=== PATIENT | male | born 1945 | race Caucasian/White ===

== ENCOUNTER 2021-06-13 05:53 | Day surgery (SDC) | payer MEDICARE, OTHER ==
[2021-06-13] MEDS ORDERED: Lactated Ringers 1,000 ML IV SCH (07:00)
[2021-06-13] MEDS ORDERED: DIPRIVAN 200 MG/20 ML IV ONE ×2 (07:25→07:52)
[2021-06-13] MEDS ORDERED: Xylocaine-Mpf 2% 5 Ml Vial ONE (07:25)
[2021-06-13] MEDS ORDERED: Versed 2 MG/2 ML Injection ONE (07:25)
--- NOTE | 2021-06-13 08:37 | OP ---
SURGERY DATE/TIME: 06/13/2021 0731 PREOPERATIVE DIAGNOSES: 1) Abdominal pain. 2) Change in bowel habits. 3) Epigastric pain. POSTOPERATIVE DIAGNOSES: 1) Moderate to severe gastritis. 2) Mild sigmoid diverticulosis. 3) Rectal polyp. PROCEDURES: 1) Esophagogastroduodenoscopy with cold forceps biopsy of the antrum and fundus of the stomach. 2) Colonoscopy with hot snare polypectomy of the rectal polyp. SURGEON: Dr. Gallardo. ANESTHESIA: Medications were given by the anesthesia department. HISTORY: The patient is a 75-year-old white male patient who reports he has been having change in his bowel habits. He reports at times it is pencil thin. He reports his last colonoscopy was over ten years ago. The patient was felt the need to have endoscopic evaluation. He was appraised of the risks of the procedure including the risk of perforation, phlebitis, untoward reaction to medication, bleeding and missed lesions. The patient verbalized his understanding and desired to have the procedure performed. DESCRIPTION OF PROCEDURE: The patient was given the medications by the anesthesia department. He had continuous pulse oximetry, ECG monitoring and intermittent blood pressure monitoring and tidal CO2 monitoring during the examination. He was placed in the left lateral decubitus position. A bite block was placed and the flexible Olympus gastroscope was used to intubate the oropharynx. A view of the larynx was obtained and was normal. The scope was easily introduced in the esophagus which appeared to be normal throughout its length. The stomach was entered where gastric rugal folds were seen and they distended nicely with insufflation of air. The scope was passed along the greater curvature of the stomach to the antrum which appeared to be marked to severely erythematous. Biopsies were obtained from the antrum. The pylorus encountered and intubated. The duodenum inspected and found to be essentially normal. The scope is withdrawn towards the stomach. Again, a retroflex view was obtained of the lesser curvature, fundus and cardia regions of the stomach and again was noted to be fairly significant inflammation and edema. Biopsies were obtained in this area, too, to rule out the presence of any dysplasia. The scope is then removed from the patient who tolerated this portion of the procedure well. Next, a digital rectal examination was performed and revealed normal anal sphincter tone, no masses and normal prostate. The flexible Olympus pediatric colonoscope was used to intubate the rectum. A view of the colon was developed sequentially to the cecum. Upon insertion and withdrawal was noted mild sigmoid diverticulosis and a rectal polyp measuring approximately 1.5 cm in size this was removed and retrieved for evaluation by pathology by hot polypectomy snare. The scope was removed from the patient who tolerated the procedure well and was sent back to OP recovery in good condition. The prep was noted to be fair.
[2021-06-13 09:14] VITALS: BP 124/68
[2021-06-13 09:31] VITALS: PULSE 57; O2SAT 95
== END 2021-06-13 09:40 | disposition home or self-care (01) ==
LOC: SDC 05:53
PROVIDERS: ATTEND Family Medicine
DX: K29.70 Gastritis, unspecified, without bleeding (principal); K57.30 Diverticulosis of large intestine without perforation or abscess without bleeding; R10.13 Epigastric pain; R10.9 Unspecified abdominal pain; R19.4 Change in bowel habit; K62.1 Rectal polyp; D13.39 Benign neoplasm of other parts of small intestine; D17.5 Benign lipomatous neoplasm of intra-abdominal organs
CPT/HCPCS: 88305; 88312; 88341; 88342; 99100; J2250; J2704

== ENCOUNTER 2022-05-19 00:14 | Emergency (ER) | payer MEDICARE, OTHER ==
[2022-05-19] MEDS ORDERED: DUONEB 0.5-3 MG/3 ml Neb IH ONE ×2 (00:22→00:23)
[2022-05-19] MEDS ORDERED: solu-MEDROL 125 MG, Sterile H2O 10 ml 2 ML IV ONE ×2 (00:22)
[2022-05-19 00:27] LABS: Absolute Neutrophil Ct (ANC) 3.25 x10^3/uL (1.4-6.9); BASOPHIL % 1.4 % (0.0-0.4); Basophil (Absolute #) 0.11 x10^3/uL (0-0.4); Eosinophil % 13.5 % (0.00-5.0); IMMATURE GRAN # 0.02 x10^3u/L (0.00-0.03); IMMATURE GRAN % 0.2 % (0.00-0.4); Lymphocyte (Absolute #) 2.87 x10^3/uL (1.0-4.6); Lymphocytes % 35.3 % (24.0-44.0); Mean Cell Volume 93.7 fL (78-100); Mean Corpuscular Hemoglobin 32.7 pg (26-32); Mean Corpuscular Hgb Concent. 34.9 g/dL (32-36); Mean Platelet Volume 9.9 fL (7.5-11.0); Monocyte (Absolute #) 0.78 x10^3/uL (0.0-1.3); Monocytes % 9.6 % (0.0-12.0); Platelet Count 249 x10^3/uL (150-450); Red Blood Count 4.59 x10^6/uL (4.1-5.6); Red Cell Distribution Width 13.4 % (11.5-14.0); White Blood Count 8.1 x10^3/uL (4.0-10.5)
--- NOTE | 2022-05-19 00:28 | ERPHSYRPT ---
- History of Present Illness Time Seen by Provider: 05/19/22 00:23 Source: patient, family Exam Limitations: no limitations Physician History: hx independently confirmed by interview with . 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 No hx ht condition that he knows of and no CP tonight. onset just today. chest with wheezes bilaterally. minimal ext edema. abd nontender without mass or peritoneal signs. Timing/Duration: today Activities at Onset: none Severity of Dyspnea-Max: moderate Severity of Dyspnea-Current: moderate Possible Cause: occasional episodes Modifying Factors: Improves With: coughing Associated Symptoms: intermittent, cough, wheezing Allergies/Adverse Reactions: shrimp Adverse Reaction (Verified 05/19/22 00:19) Home Medications: Atorvastatin Calcium [Lipitor] 20 mg PO DAILY 06/23/12 [History] Levothyroxine Sodium 175 Mcg [Synthroid 175 MCG] 175 mcg PO DAILY 06/23/12 [History] Lisinopril 10 mg [Zestril 10 MG] 10 mg PO DAILY 07/06/15 [History] Magnesium 250 mg PO UD 07/06/15 [History] Metoprolol Succinate 50 mg [Toprol Xl 50 MG] 50 mg PO DAILY 07/06/15 [History] Oxycodone HCl 10 mg PO Q6H PRN PRN 07/06/15 [History] Allopurinol 100 mg [Zyloprim 100 mg] 100 mg PO DAILY 08/25/15 [History] Omeprazole 40 mg PO HS 06/12/21 [History] Tamsulosin HCl 0.4 mg PO DAILY 06/12/21 [History] Hx Influenza Vaccination/Date Given: Yes Hx Pneumococcal Vaccination/Date Given: Yes - Review of Systems Constitutional: No Fever, No Chills Eyes: No Symptoms Ears, Nose, & Throat: No Symptoms Respiratory: Cough, Dyspnea Cardiac: No Chest Pain, No Edema, No Syncope Abdominal/Gastrointestinal: No Abdominal Pain, No Nausea, No Vomiting, No Diarrhea Genitourinary Symptoms: No Dysuria Musculoskeletal: No Back Pain, No Neck Pain Skin: No Rash Neurological: No Dizziness, No Focal Weakness, No Sensory Changes Psychological: No Symptoms Endocrine: No Symptoms Hematologic/Lymphatic: No Symptoms Immunological/Allergic: No Symptoms All Other Systems: Reviewed and Negative - Past Medical History Pertinent Past Medical History: Yes Neurological History: No Pertinent History ENT History: No Pertinent History Cardiac History: Aneurysm, High Cholesterol, Hypertension Respiratory History: No Pertinent History Endocrine Medical History: Hypothyroidism Musculoskeletal History: Arthritis, Fractures GI Medical History: No Pertinent History History: Other Psycho-Social History: No Pertinent History Male Reproductive Disorders: No Pertinent History Other Medical History: 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 Right hip replaced - Social History Smoking Status: Current every day smoker How long have you smoked: 50+ years Exposure to second hand smoke: No Drug Use: narcotics - Nursing Vital Signs Nursing Vital Signs: Initial Vital Signs Temperature 98.6 F 05/19/22 00:15 Pulse Rate 59 L 05/19/22 00:15 Respiratory Rate 20 05/19/22 00:15 Blood Pressure 161/77 05/19/22 00:15 O2 Sat by Pulse Oximetry 97 05/19/22 00:15 Pain Scale Pain Intensity 0 - Physical Exam General Appearance: no apparent distress, alert Eye Exam: PERRL/EOMI Neck Exam: normal inspection, supple Respiratory Exam: wheezing, pleural rub Cardiovascular/Chest Exam: normal heart sounds, regular rate/rhythm Abdominal/Gastrointestinal Exam: soft, No tenderness, No distention, No mass Extremity Exam: non-tender, normal range of motion, normal inspection, no calf tenderness, no pedal edema Peripheral Pulses Exam: carotid (R): 2+, carotid (L): 2+, femoral (R): 2+, femoral (L): 2+, dorsalis-pedis (R): 2+, dorsalis-pedis (L): 2+ Neurologic Exam: alert, oriented x 3, cooperative, delphi programmer II-XII nml as tested, sensation nml, No motor deficits Skin Exam: normal color, warm, No dry SpO2 Interpretation: normal SpO2: 97 O2 Delivery: Room Air - Course Nursing assessment & vital signs reviewed: Yes EKG Interpreted by Me: Sinus Rhythm, LAFB, NORMAL QRS, Non-specific ST Changes - Radiology Exams Chest X-ray Interpretation: Reviewed by me, Infiltrates (interstitial infiltrates) - CT Exams Chest CT Interpretation: Tele-radiologist Report, No PE, Other (chronic interstitial changes left pleural calc CAD. ) Ordered Tests: Active Orders 24 hr Category Date Time Status EKG-ER Only STAT Care 05/19/22 00:19 Active IV Insertion STAT Care 05/19/22 00:19 Active CHEST 1 VIEW (PORTABLE) Stat Exams 05/19/22 00:20 Taken CHEST WITH CONTRAST [CT] Stat Exams 05/19/22 01:55 Taken CBC W DIFF Stat Lab 05/19/22 00:24 Completed CMP Stat Lab 05/19/22 00:24 Completed D-DIMER QUANTITATIVE Stat Lab 05/19/22 00:24 Completed Lactic Acid Stat Lab 05/19/22 00:35 Completed NT PRO BNP Stat Lab 05/19/22 00:24 Completed TROPONIN Q4H Lab 05/19/22 00:24 Completed TROPONIN Q4H Lab 05/19/22 04:30 Ordered TROPONIN Q4H Lab 05/19/22 08:30 Ordered Respiratory Therapy Assessment DAILY RT 05/19/22 00:24 Active Medication Summary Generic Name Dose Route Start Last Admin Trade Name Freq PRN Reason Stop Dose Admin Sodium Chloride 1,000 mls @ 100 mls/hr 05/19/22 00:30 05/19/22 00:31 Sodium Chloride 0.9% 1000 Ml IV 06/18/22 00:29 100 mls/hr .Q10H ADA Administration Discontinued Medications Generic Name Dose Route Start Last Admin Trade Name Freq PRN Reason Stop Dose Admin Albuterol/Ipratropium 3 ml 05/19/22 00:22 05/19/22 00:26 Ipratropium/Albuterol Sulfate 3 Ml Ampul.Neb IH 05/19/22 00:23 3 ml STAT ONE Administration Albuterol/Ipratropium Confirm 05/19/22 00:23 Ipratropium/Albuterol Sulfate 3 Ml Ampul.Neb Administered 05/19/22 00:24 Dose 3 ml IH .STK-MED ONE Methylprednisolone Sodium 0 mg 05/19/22 00:22 05/19/22 00:31 Succinate 125 mg/ Sterile IV 05/19/22 00:23 125 mg Water 2 ml STAT ONE Administration Methylprednisolone Sodium Succinate Confirm 05/19/22 00:29 Methylprednis Sod Succ 125 Mg/2 Ml Vial Administered 05/19/22 00:30 Dose 125 mg .ROUTE .[email or web address] ONE Sterile Water Confirm 05/19/22 00:29 Water For Injection,Sterile 10 Ml Vial Administered 05/19/22 00:30 Dose 10 ml IJ .STK-MED ONE Lab/Rad Data: Laboratory Result Diagrams 05/19/22 00:24 05/19/22 00:24 Laboratory Results 05/19/22 05/19/22 05/19/22 Range/Units 00:44 00:35 00:24 WBC (4.0-10.5) x10^3/uL RBC (4.1-5.6) x10^6/uL Hgb (12.5-18.0) g/dL Hct (42-50) % MCV (78-100) fL MCH (26-32) pg MCHC (32-36) g/dL RDW (11.5-14.0) % Plt Count (150-450) x10^3/uL MPV (7.5-11.0) fL Gran % (36.0-66.0) % Immature Gran % (Auto) (0.00-0.4) % Nucleat RBC Rel Count (0.00-0.1) % Eos # (Auto) (0-0.5) x10^3/uL Immature Gran # (Auto) (0.00-0.03) x10^3u/L Absolute Lymphs (auto) (1.0-4.6) x10^3/uL Absolute Monos (auto) (0.0-1.3) x10^3/uL Absolute Nucleated RBC (0.00-0.01) x10^3u/L Lymphocytes % (24.0-44.0) % Monocytes % (0.0-12.0) % Eosinophils % (0.00-5.0) % Basophils % (0.0-0.4) % Absolute Granulocytes (1.4-6.9) x10^3/uL Basophils # (0-0.4) x10^3/uL D-Dimer (0.0-0.50) mg/L Sodium (137-145) mmol/L Potassium (3.5-5.1) mmol/L Chloride (98-107) mmol/L Carbon Dioxide (22-30) mmol/L Anion Gap (5-15) MEQ/L BUN (9-20) mg/dL Creatinine (0.66-1.25) mg/dL Estimated GFR ML/MIN Glucose (74-106) mg/dL Lactic Acid 1.3 (0.4-2.0) Calcium (8.4-10.2) mg/dL Total Bilirubin (0.2-1.3) mg/dL AST (17-59) U/L ALT (0-50) U/L Alkaline Phosphatase (38-126) U/L Troponin I < 0.012 (0.000-0.034) ng/mL NT-Pro-B Natriuret Pep (0-1800) pg/mL Serum Total Protein (6.3-8.2) g/dL Albumin (3.5-5.0) g/dL Influenza Type A Ag NEGATIVE (NEGATIVE) Influenza Type B Ag NEGATIVE (NEGATIVE) RSV (PCR) NEGATIVE (Negative) SARS-CoV-2 (PCR) NEGATIVE (NEGATIVE) 05/19/22 05/19/22 05/19/22 Range/Units 00:24 00:24 00:24 WBC 8.1 (4.0-10.5) x10^3/uL RBC 4.59 (4.1-5.6) x10^6/uL Hgb 15.0 (12.5-18.0) g/dL Hct 43.0 (42-50) % MCV 93.7 (78-100) fL MCH 32.7 H (26-32) pg MCHC 34.9 (32-36) g/dL RDW 13.4 (11.5-14.0) % Plt Count 249 (150-450) x10^3/uL MPV 9.9 (7.5-11.0) fL Gran % 40.0 (36.0-66.0) % Immature Gran % (Auto) 0.2 (0.00-0.4) % Nucleat RBC Rel Count 0.0 (0.00-0.1) % Eos # (Auto) 1.10 H (0-0.5) x10^3/uL Immature Gran # (Auto) 0.02 (0.00-0.03) x10^3u/L Absolute Lymphs (auto) 2.87 (1.0-4.6) x10^3/uL Absolute Monos (auto) 0.78 (0.0-1.3) x10^3/uL Absolute Nucleated RBC 0.00 (0.00-0.01) x10^3u/L Lymphocytes % 35.3 (24.0-44.0) % Monocytes % 9.6 (0.0-12.0) % Eosinophils % 13.5 H (0.00-5.0) % Basophils % 1.4 (0.0-0.4) % Absolute Granulocytes 3.25 (1.4-6.9) x10^3/uL Basophils # 0.11 (0-0.4) x10^3/uL D-Dimer 0.69 H* (0.0-0.50) mg/L Sodium 133 L (137-145) mmol/L Potassium 4.3 (3.5-5.1) mmol/L Chloride 98 (98-107) mmol/L Carbon Dioxide 29 (22-30) mmol/L Anion Gap 10.7 (5-15) MEQ/L BUN 9 (9-20) mg/dL Creatinine 0.80 (0.66-1.25) mg/dL Estimated GFR > 60.0 ML/MIN Glucose 92 (74-106) mg/dL Lactic Acid (0.4-2.0) Calcium 9.2 (8.4-10.2) mg/dL Total Bilirubin 0.70 (0.2-1.3) mg/dL AST 33 (17-59) U/L ALT 23 (0-50) U/L Alkaline Phosphatase 76 (38-126) U/L Troponin I (0.000-0.034) ng/mL NT-Pro-B Natriuret Pep 105 (0-1800) pg/mL Serum Total Protein 7.8 (6.3-8.2) g/dL Albumin 4.7 (3.5-5.0) g/dL Influenza Type A Ag (NEGATIVE) Influenza Type B Ag (NEGATIVE) RSV (PCR) (Negative) SARS-CoV-2 (PCR) (NEGATIVE) - Progress Progress: improved, re-examined Air Movement: good Progress Note: 05/19/22 02:01 discussed elevated d dimer with pt and and risk benefit of cta and they wish to proceed. 05/19/22 04:[address] with and pt, and that CAD is present and he is at risk for cardiac event even with negative enzymes. THey are advised of the plearal calcification to f/u PMD. and posible liver nodule as well. They understand and are comfortable with outpt f/u with PMD rather than further eval in ER of hosp and this is reasonable as symptoms have resolved with resp Tx and there has been no chest pain. THey have the normal mental status and capacity for this choice. THey are advised to return meantime if there are any recurring sytmps. 'Discussed scripts for dospak and AB and they wish to proceed. Blood Culture(s) Obtained: No Antibiotics given: Yes Counseled pt/family regarding: lab results, diagnosis, need for follow-up, rad results - Departure Departure Disposition: Home Clinical Impression: exacerbation COPD, Shortness of breath Condition: Good Critical Care Time: No Referrals: HOSPITAL,'S [Primary Care Provider] - Follow up/PCP as directed Instructions: Exacerbation of COPD (DC), Shortness of Breath (Dyspnea) (DC), Coronary Artery Disease (DC) Additional Instructions: Your symptoms have responded as expected for an infection and aggravation of underlying COPD or lung disease ( including coal miners lung) . However we also found that there is some disease in the coronary arteries and although the heart enzymes were normal, you still may be at risk to develop a cardiac condition or event and should see your Dr. to consider further workup and treatment to prevent this. ( we are giving instructions to advise you what to watch for just in case) Return meantime if any chest pain or further yvonne rtness of breath occurs dizziness or other concerns. . Prescriptions: Azithromycin [Azithromycin 250 mg Pack] 250 mg PO UD #6 tablet Methylprednisolone Packet [Medrol Dosepack] 4 mg PO UD #1 packet
[2022-05-19] MEDS ORDERED: solu-MEDROL ONE (00:29)
[2022-05-19] MEDS ORDERED: Sterile H2O 10 ml IJ ONE (00:29)
[2022-05-19] MEDS ORDERED: Sodium Chloride 0.9% 1000 ML 1,000 ML ONE (00:29)
[2022-05-19] MEDS ORDERED: Sodium Chloride 0.9% 1000 ML 1,000 ML IV SCH (00:30)
[2022-05-19 00:48] LABS: ALBUMIN 4.7 g/dL (3.5-5.0); ALKALINE PHOSPHATASE 76 U/L (38-126); ANION GAP 10.7 MEQ/L (5-15); BLOOD UREA NITROGEN 9 mg/dL (9-20); CHLORIDE 98 mmol/L (98-107); Calcium 9.2 mg/dL (8.4-10.2); Carbon Dioxide 29 mmol/L (22-30); EST GLOMERULAR FILTRATION RATE > 60.0 ML/MIN; Glucose 92 mg/dL (74-106); NT PRO BNP 105 pg/mL (0-1800); Potassium 4.3 mmol/L (3.5-5.1); SGOT/AST 33 U/L (17-59); SGPT/ALT 23 U/L (0-50); SODIUM 133 mmol/L (137-145); Total Protein 7.8 g/dL (6.3-8.2)
[2022-05-19 01:28] LABS: INFLUENZA A NEGATIVE (NEGATIVE); INFLUENZA B NEGATIVE (NEGATIVE); RESPIRATORY SYNCTIAL VIRUS NEGATIVE (Negative); SARS-CoV-2 Xpert Express NEGATIVE (NEGATIVE)
[2022-05-19] MEDS ORDERED: Zithromax 250 MG TABLET PO ONE (04:16)
[2022-05-19] MEDS ORDERED: Zithromax 250 MG TABLET ONE (04:23)
[2022-05-19 04:39] VITALS: BP 136/75; PULSE 63; O2SAT 98
--- NOTE | 2022-05-19 08:10 | XRAY ---
Indication: Short of breath. Elevated d-dimer. Multiple contiguous axial images obtained through the chest using 100 cc Isovue 370 contrast and PE protocol. Comparison: None. Adequate opacification of the pulmonary arteries. Mild diffuse respiration artifact limits evaluation of the more distal lobar and segmental branches. No obvious pulmonary embolus. Heart not enlarged. Aorta mildly arteriosclerotic without aneurysm/dissection. No pathologic mediastinal/hilar lymphadenopathy. Lungs demonstrates mild/moderate diffuse pulmonary emphysema, scattered peripheral fibrosis/scarring, and posterior left hemithorax calcified pleural plaquing. No suspicious pulmonary mass, infiltrate, or effusion. Bony thorax intact with osteopenia and mild/moderate degenerative changes throughout the visualized spine. Multilevel thoracic and upper lumbar vertebral bodies demonstrates sclerotic appearance probably degenerative in etiology. Cannot completely exclude osteoblastic metastasis in the right clinical setting. Limited upper abdomen demonstrates mild fatty liver, 1.8 cm left lobe hepatic cyst versus hemangioma, and 3.4 cm left renal parapelvic cyst. Impression: 1. Pulmonary embolus evaluation limited due to respiration artifact. No obvious pulmonary embolus. 2. Chronic findings including pulmonary emphysema, fibrosis/scarring, and left hemithorax calcified pleural plaquing. 3. Osteopenia and multilevel degenerative spondylosis. Multilevel thoracolumbar sclerotic vertebral bodies probably degenerative in etiology. Osteoblastic metastasis not completely excluded. 4. Incidental arteriosclerotic disease, fatty liver, hepatic cyst/hemangioma, and left renal cyst. Comment: Preliminary interpretation by C. No critical discrepancy.
--- NOTE | 2022-05-19 08:12 | XRAY ---
Indication: Short of breath. Comparison: October 14, 2014 Chest again demonstrates COPD with scattered fibrosis/scarring and CT proven left hemithorax calcified pleural plaquing. No focal infiltrate, consolidation, or large effusion. Heart not enlarged again with tortuous descending aorta. Bony thorax intact again with osteopenia and moderate degenerative changes. Impression: Continued nonacute chest with chronic features.
== END 2022-05-19 04:33 | disposition home or self-care (01) ==
LOC: ED 00:14
DX: J44.1 Chronic obstructive pulmonary disease with (acute) exacerbation (principal); R06.02 Shortness of breath; E78.5 Hyperlipidemia, unspecified; I10 Essential (primary) hypertension; Z79.52 Long term (current) use of systemic steroids; Z79.899 Other long term (current) drug therapy; Z72.0 Tobacco use; Z20.828 Contact with and (suspected) exposure to other viral communicable diseases
CPT/HCPCS: 0241U; 36000; 36415; 71045; 71260; 80053; 83605; 83880; 84484; 85025; 85379; 93005; 94640; 96374; 99284; J2930; A9270-GY